=== PATIENT | male | born 1985 ===

== ENCOUNTER 2018-04-26 10:18 | Emergency (ER) | payer BC ==
[2018-04-26] MEDS ORDERED: Sodium Chloride 0.9% 1,000 ML IV ONE (11:22)
--- NOTE | 2018-04-26 11:39 | C.PDOC ---
History Of Present Illness 32 y/o male with a PMHx of prior kidney stones 4-5 years ago, presents to the ED complaining he woke today with severe right-sided back pain around 5:00am. Associated with nausea and 1 episode of vomiting, non-bilious and non-bloody. Patient notes current pain is reminiscent of prior kidney stone. He reports he tried taking Tylenol without any relief. Otherwise patient denies any dysuria, hematuria, diarrhea, abdominal pain, chest pain, SOB, fever, or chills. Time Seen by Provider: 04/26/18 11:04 Chief Complaint (Nursing): Male Genitourinary History Per: Patient History/Exam Limitations: no limitations Onset/Duration Of Symptoms: Hrs Current Symptoms Are (Timing): Still Present Severity: Severe Associated Symptoms: Nausea, Vomiting Past Medical History Reviewed: Historical Data, Nursing Documentation, Vital Signs Vital Signs: Last Vital Signs Temp 98.2 F 04/26/18 10:23 Pulse 55 L 04/26/18 10:23 Resp 18 04/26/18 10:23 BP 145/78 04/26/18 10:23 Pulse Ox 96 04/26/18 10:23 - Medical History PMH: Kidney Stones (1 episode, 4-5 years ago) Family History: States: No Known Family Hx - Social History Hx Alcohol Use: No Hx Substance Use: No - Immunization History Hx Tetanus Toxoid Vaccination: No Hx Influenza Vaccination: No Hx Pneumococcal Vaccination: No Review Of Systems Except As Marked, All Systems Reviewed And Found Negative. Constitutional: Negative for: Fever, Chills Cardiovascular: Negative for: Chest Pain Respiratory: Negative for: Shortness of Breath Gastrointestinal: Positive for: Nausea, Vomiting. Negative for: Abdominal Pain, Diarrhea, Hematemesis Genitourinary: Negative for: Dysuria, Hematuria Musculoskeletal: Positive for: Back Pain (right-sided) Skin: Negative for: Rash Neurological: Negative for: Weakness, Dizziness Physical Exam - Physical Exam Appears: Non-toxic, No Acute Distress, Other (Appears slightly uncomfortable) Skin: Warm, Dry, No Rash Head: Atraumatic, Normacephalic Eye(s): bilateral: Normal Inspection, PERRL, EOMI Oral Mucosa: Moist Neck: Normal ROM Chest: Symmetrical Cardiovascular: Rhythm Regular, No Murmur Respiratory: Normal Breath Sounds, No Rales, No Rhonchi, No Wheezing Gastrointestinal/Abdominal: Soft, Tenderness (Mild RLQ tenderness), No Guarding, No Rebound Back: CVA Tenderness (Right-sided), No Vertebral Tenderness Extremity: Bilateral: Atraumatic, Normal Color And Temperature Pulses: Left Dorsalis Pedis: Normal, Right Dorsalis Pedis: Normal Neurological/Psych: Oriented x3, Normal Speech ED Course And Treatment - Laboratory Results Result Diagrams: 04/26/18 11:49 04/26/18 11:49 O2 Sat by Pulse Oximetry: 96 (RA) Pulse Ox Interpretation: Normal - CT Scan/US CT Abd/Pelvis Other Rad Studies (CT/US): Read By Radiologist, Radiology Report Reviewed CT/US Interpretation: Accession No. : [id number]. Patient Name / ID : MARY JACOBS / [id number]. Exam Date : 04/26/2018 13:05:08 ( Approved ). [facility] Comment : Sex / Age : M / 32Y. Creator : Violeta Zheng. Dictator : Michelle Figueroa MD. Chemistry Department Chair : Die Cutter Diamond : Michelle Figueroa MD. Approver2 : Report Date : 04/26/2018 13:19:52. My Comment : . PROCEDURE: CT Abdomen and Pelvis without Oral or IV contrast. HISTORY: RIGHT FLANK PAIN R/O KIDNEY STONE. COMPARISON: None available. TECHNIQUE: Contiguous axial images of the abdomen and pelvis. No oral or IV contrast administered. Coronal and Sagittal reformats generated and reviewed. Radiation dose: Total exam DLP = 1152.85 mGy-cm. This CT exam was performed using one or more of the following dose reduction techniques: Automated exposure control, adjustment of the mA and/or kV according to patient size, and/or use of iterative reconstruction technique. FINDINGS: There is limited evaluation of the solid organs without the administration of IV contrast. LOWER THORAX: No visible consolidation, pleural effusion, or pneumothorax. LIVER: Hepatomegaly. Hypoattenuation of the liver compatible with hepatic steatosis. GALLBLADDER AND BILE DUCTS: Unremarkable unenhanced appearance. PANCREAS: Unremarkable unenhanced appearance. SPLEEN: Unremarkable unenhanced appearance. ADRENALS: Unremarkable unenhanced appearance. KIDNEYS AND URETERS: 4 mm calculus within the urinary bladder just distal to the right UVJ. Mild fullness of the right ureter/collecting system. Findings consistent with recently passed calculus. No obstructing calculus or hydronephrosis on the left. BLADDER: See above. REPRODUCTIVE: Unremarkable. APPENDIX: The appendix appears within normal limits of caliber. No secondary signs of acute appendicitis. BOWEL: The stomach is nondistended. Lack of oral contrast limits evaluation for bowel pathology. The bowel loops appear within normal limits of caliber without evidence of intestinal obstruction. PERITONEUM: No significant free fluid. No definite free air. LYMPH NODES: No bulky lymphadenopathy identified. VASCULATURE: No aortic aneurysm. BONES: No acute osseous abnormality is detected. OTHER FINDINGS: None. IMPRESSION: 4 mm calculus within the urinary bladder just distal to the right UVJ. Mild fullness of the right ureter/collecting system. Findings consistent with recently passed calculus. Progress Note: Blood work and UA ordered and reviewed. Pending noncontrast CT Abdomen/Pelvis to rule out renal colic. Administered 1 bolus NS IV fluids and 30 mg IV Toradol for pain control. Labs reviewed, UA shows +blood but no leukocyte esterase or WBCs. CT read, showing 4mm calculus in the urinary bladder, consistent with passed calculus. Patient reports improvement in symptoms on reassessment. Will discharge patient home, instructed to follow up with Urology. Copy of CT report provided. Disposition Counseled Patient/Family Regarding: Studies Performed, Diagnosis, Need For Followup, Rx Given - Disposition Referrals: Dinesh Del Valle MD [Staff Provider] - Disposition: HOME/ ROUTINE Disposition Time: 14:15 Condition: STABLE Additional Instructions: FOLLOW UP WITH UROLOGY WITHIN 1 WEEK DRINK PLENTY OF FLUIDS USE MEDICATIONS DIRECTED RETURN TO ER IF SYMPTOMS WORSEN Prescriptions: Naproxen 375 mg PO BID PRN #20 tablet PRN Reason: pain Tamsulosin [Flomax] 0.4 mg PO DAILY #5 cap Instructions: Kidney Stones (DC), Renal Colic (DC) Forms: [employer] (Palestinian) Print Language: ICELANDIC - Clinical Impression Clinical Impression: Renal colic on right side - Scribe Statement The provider has reviewed the documentation as recorded by the Nick Abdi Provider Attestation: All medical record entries made by the Dottieibsobia were at my direction and personally dictated by me. I have reviewed the chart and agree that the record accurately reflects my personal performance of the history, physical exam, medical decision making, and the department course for this patient. I have also personally directed, reviewed, and agree with the discharge instructions and disposition.
[2018-04-26 11:56] LABS: BASO % 0.3 % (0.0-2.0); EOS # 0.1 K/uL (0.0-0.7); EOS % 0.9 % (0.0-4.0); HEMOGLOBIN 12.3 g/dL (12.0-18.0); LYMPH # 1.5 K/uL (1.0-4.3); MEAN CELL VOLUME 71.6 fL (80.0-94.0); MEAN CORPUSCULAR HEMOGLOBIN 22.3 pg (27.0-31.0); MEAN CORPUSCULAR HGB CONC 31.1 g/dL (33.0-37.0); MEAN PLATELET VOLUME 8.4 fL (7.2-11.7); MONO # 0.4 K/uL (0.0-0.8); MONO % 4.8 % (0.0-10.0); NEUT # 5.9 K/uL (1.8-7.0); RBC 5.54 Mil/uL (4.40-5.90); WHITE BLOOD COUNT 7.9 K/uL (4.8-10.8)
[2018-04-26 12:07] LABS: URINE BILIRUBIN NEGATIVE (NEGATIVE); URINE BLOOD 1+ (NEGATIVE); URINE CLARITY Clear (Clear); URINE COLOR Yellow (YELLOW); URINE GLUCOSE (UA) NORMAL (Normal); URINE LEUKOCYTE ESTERASE NEG Leu/uL (Negative); URINE PROTEIN NEGATIVE (NEGATIVE); URINE UROBILINOGEN NORMAL mg/dL (0.2-1.0)
[2018-04-26 12:18] LABS: ALB/GLOB RATIO 1.5 (1.0-2.1); ALBUMIN 4.7 g/dL (3.5-5.0); ALT/SGPT 242 U/L (21-72); AST/SGOT 89 U/L (17-59); BLOOD UREA NITROGEN 20 mg/dL (9-20); CALCIUM 9.5 mg/dl (8.6-10.4); GFR NON-AFRICAN AMERICAN > 60
[2018-04-26 13:45] VITALS: BP 123/68; PULSE 63; RESP 16; TEMP 98.8
--- NOTE | 2018-04-26 13:50 | CT ---
PROCEDURE: CT Abdomen and Pelvis without Oral or IV contrast. HISTORY: RIGHT FLANK PAIN R/O KIDNEY STONE COMPARISON: None available. TECHNIQUE: Contiguous axial images of the abdomen and pelvis. No oral or IV contrast administered. Coronal and Sagittal reformats generated and reviewed. Radiation dose: Total exam DLP = 1152.85 mGy-cm. This CT exam was performed using one or more of the following dose reduction techniques: Automated exposure control, adjustment of the mA and/or kV according to patient size, and/or use of iterative reconstruction technique. FINDINGS: There is limited evaluation of the solid organs without the administration of IV contrast. LOWER THORAX: No visible consolidation, pleural effusion, or pneumothorax. LIVER: Hepatomegaly. Hypoattenuation of the liver compatible with hepatic steatosis. GALLBLADDER AND BILE DUCTS: Unremarkable unenhanced appearance. PANCREAS: Unremarkable unenhanced appearance. SPLEEN: Unremarkable unenhanced appearance. ADRENALS: Unremarkable unenhanced appearance. KIDNEYS AND URETERS: 4 mm calculus within the urinary bladder just distal to the right UVJ. Mild fullness of the right ureter/collecting system. Findings consistent with recently passed calculus. No obstructing calculus or hydronephrosis on the left. BLADDER: See above. REPRODUCTIVE: Unremarkable. APPENDIX: The appendix appears within normal limits of caliber. No secondary signs of acute appendicitis. BOWEL: The stomach is nondistended. Lack of oral contrast limits evaluation for bowel pathology. The bowel loops appear within normal limits of caliber without evidence of intestinal obstruction. PERITONEUM: No significant free fluid. No definite free air. LYMPH NODES: No bulky lymphadenopathy identified. VASCULATURE: No aortic aneurysm. BONES: No acute osseous abnormality is detected. OTHER FINDINGS: None. IMPRESSION: 4 mm calculus within the urinary bladder just distal to the right UVJ. Mild fullness of the right ureter/collecting system. Findings consistent with recently passed calculus.
[2018-04-26 14:17] VITALS: O2SAT 96
== END 2018-04-26 14:36 | disposition home or self-care (01) ==
LOC: C.ER 10:18
DX: N23 Unspecified renal colic (principal)
CPT/HCPCS: 74176; 80053; 81001; 85025; 87086; 96374; 99284; J1885; J7030